=== PATIENT | male | born 1935 | race Caucasian/White ===

== ENCOUNTER 2017-10-30 01:22 | Emergency (ER) | payer OTHER, MEDICARE ==
[~2017-10-30] VITALS: Ht 175.3 cm; Wt 70.3 kg
--- NOTE | 2017-10-30 02:25 | NUR ---
PT BIB C/O LAC TO BACK OF THE HEAD WITH BLEEDING MOSTLY STOPPED S/P SYNCOPE WHEN STANDING UP FROM BED TO GO TO THE BATHROOM. REPORTS THAT HE HAS FREQUENT SYNCOPAL EPISODES. TETANUS BOOSTER NOT UP TO DATE. DENIES PAIN. NO NEURO DEFICITS. AMBULATORY STEADY GAIT. RESP EVEN UNLABORED.
[2017-10-30] MEDS ORDERED: LIDOCAINE 1%-EPI 1:100,000 20 ML VIAL TP ONE (02:30)
[2017-10-30] MEDS ORDERED: CEFAZOLIN 1 GM in IV D5W 50 ML IV ONE (02:30)
[2017-10-30] MEDS ORDERED: IV NS 0.9% 500 ML BAG IV ONE (02:30)
[2017-10-30] MEDS ORDERED: ENAL20TA70 PO (02:38)
[2017-10-30] MEDS ORDERED: LEVO25TA7 PO (02:38)
[2017-10-30] MEDS ORDERED: APIX5TAB4 PO (02:38)
[2017-10-30] MEDS ORDERED: METO25TA20 PO (02:38)
[2017-10-30] MEDS ORDERED: ZOLP5TAB2 PO (02:38)
[2017-10-30] MEDS ORDERED: TAMS-12 PO (02:38)
[2017-10-30] MEDS ORDERED: SIMV20TA2 PO (02:38)
[2017-10-30] MEDS ORDERED: ASPI-1100 PO (02:38)
[2017-10-30] MEDS ORDERED: TEST2.5G2 TD (02:38)
[2017-10-30 02:39] LABS: BASOPHILS % (AUTO) 0.6 % (0.0-2.0); EOSINOPHILS % (AUTO) 6.7 % (0.0-6.0); HEMATOCRIT 38 % (39-51); HEMOGLOBIN 12.9 g/dL (13.5-17.5); LYMPHOCYTES # (AUTO) 0.8 /CMM (0.8-4.8); LYMPHOCYTES % (AUTO) 15.1 % (20.0-44.0); MEAN CORPUSCULAR HEMOGLOBIN 35 PG (26.0-33.0); MEAN CORPUSCULAR HGB CONC 34 g/dl (31.0-36.0); MEAN CORPUSCULAR VOLUME 101 fL (80-96); MONOCYTES # (AUTO) 0.5 /CMM (0.1-1.30); MONOCYTES % (AUTO) 9.6 % (2.0-12.0); NEUTROPHILS # (AUTO) 3.7 /CMM (1.8-8.9); PLATELET COUNT (AUTO) 242 /CMM (150-450); RDW COEFFICIENT OF VARIATION 13.3 (11.5-15.0); RED BLOOD CELL COUNT(AUTO) 3.73 MIL/uL (4.5-6.0); WHITE BLOOD COUNT (AUTO) 5.5 K/uL (4.3-11.0)
[2017-10-30 02:48] LABS: CALCIUM, SERUM 8.5 mg/dL (8.5-10.1); CARBON DIOXIDE 25 mmol/L (21-32); CHLORIDE 106 mmol/L (98-107); CREATININE 1.1 mg/dL (0.6-1.3); GLUCOSE 90 mg/dL (74-106); POTASSIUM 3.7 mmol/L (3.5-5.1); SODIUM SERUM 138 mmol/L (136-145); UREA NITROGEN, BLOOD 23 mg/dL (7-18)
[2017-10-30] MEDS ORDERED: PRED2.5T PO (02:52)
[2017-10-30 02:54] LABS: ALANINE AMINOTRANSFERASE 21 U/L (12-78); ALBUMIN 3.2 g/dL (3.4-5.0); ALKALINE PHOSPHATASE 68 U/L (46-116); ASPARTATE AMINOTRANSFERASE 21 U/L (15-37); BILIRUBIN,DIRECT 0.1 mg/dL (0.0-0.2); BILIRUBIN,TOTAL 0.2 mg/dL (0.2-1.0)
[2017-10-30 02:56] LABS: TROPONIN I < 0.017 ng/mL (0.00-0.056)
[2017-10-30] MEDS ORDERED: LIDOCAINE 1%-EPI 1:100,000 20 ML VIAL ONE (03:14)
[2017-10-30] MEDS ORDERED: CEFAZOLIN 1 GM ONE (03:19)
[2017-10-30] MEDS ORDERED: TDAP [DIPH/PERTUSSIS/TET] 0.5 ML VIAL IM ONE ×2 (03:48→04:30)
--- NOTE | 2017-10-30 04:03 | NUR ---
Patient discharged to home in stable condition. Written and verbal after care instructions given. Patient verbalizes understanding of instruction. AMBULATORY WITH STEADY GAIT. THOROUGH WOUND CARE INSTRUCTIONS GIVEN AND VBERBALIZES UNDERSTANDING. IV removed. Catheter intact and site benign. Pressure and 4x4 applied to site. No bleeding noted.
[2017-10-30 04:11] VITALS: BP 127/86
== END 2017-10-30 04:14 | disposition home or self-care (01) ==
LOC: ER 01:28
DX: S01.01XA Laceration without foreign body of scalp, initial encounter (principal); R55 Syncope and collapse; I48.91 Unspecified atrial fibrillation; E03.9 Hypothyroidism, unspecified; I10 Essential (primary) hypertension; F10.10 Alcohol abuse, uncomplicated; Y90.9 Presence of alcohol in blood, level not specified; Z23 Encounter for immunization; Z79.82 Long term (current) use of aspirin; Z95.1 Presence of aortocoronary bypass graft; Z95.0 Presence of cardiac pacemaker; W22.8XXA Striking against or struck by other objects, initial encounter; Y93.89 Activity, other specified; Y92.002 Bathroom of unspecified non-institutional (private) residence as the place of occurrence of the external cause; Y99.8 Other external cause status
CPT/HCPCS: 12002; 36415; 70450; 80048; 80076; 84484; 85025; 90471; 90715; 93005; 96365; 99285; A4606; A6402; A6403; J0690; J3490; J7040; J7060; Z7610